=== PATIENT | female | born 1990 | race Asian ===

== ENCOUNTER 2019-09-01 09:05 | Inpatient (IN) | payer MEDICAID, SELFPAY ==
[2019-09-01] MEDS ORDERED: Promethazine HCl 25 MG/ML VIAL IM PRN ×3 (09:22→14:49)
[2019-09-01] MEDS ORDERED: Ondansetron PF 4 MG/2 ML Vial IVP PRN ×3 (09:22→14:49)
[2019-09-01] MEDS ORDERED: hydrALAZINE 20 MG/ML VIAL SLOW IVP PRN ×2 (09:22→14:49)
--- NOTE | 2019-09-01 09:26 | PDOC.LDHP ---
Labor and Delivery H&P HPI: 29 y/o at 40 and 1/7 weeks, with LGA fetus and suspected CPD, who has decided to have a , She declines a trial of labor. Current gestational age (weeks): 40 Due date: 08/31/19 Grav: 1 Para: 0 Current complications: other (CPD, LGA Fetus) Abnormal US findings: No Current medications: pre- vitamins Social history: none - Physical Exam Vital signs reviewed and normal: yes General: NAD Heart: RRR Lungs: CTAB Abdomen: gravid Extremeties: no edema FHT: category 1 - Assessment L&D Assessment: scheduled primary section - Plan Plan: admit to L&D, to OR for section
[2019-09-01] MEDS ORDERED: CEFAZOLIN 2 GM in Premix Bag 1 BAG IVPB SCH (09:30)
[2019-09-01] MEDS ORDERED: Bicitra 30 ML UDCUP PO SCH (09:30)
[2019-09-01] MEDS: Lactated Ringer's 1,000 ML IV SCH ×2 (09:56→10:52)
[2019-09-01 10:04] LABS: Hemoglobin 12.5 g/dL (12.0-16.0); Mean Corpuscular HGB CONC 31.6 g/dL (32.0-36.0); Mean Corpuscular Hemoglobin 30.8 pg (27.0-31.0); Mean Corpuscular Volume 97.4 fL (78.0-98.0); Mean Platelet Volume 8.6 fL (7.4-10.4); Platelet Count 230 thou/uL (130-400); RBC Distribution Width 13.5 % (11.5-14.5); Red Blood Cell (RBC) Count 4.06 mill/uL (4.20-5.40); White Blood Cell (WBC) Count 11.1 thou/uL (4.8-10.8)
[2019-09-01 10:25] VITALS: BMI 23.7
[2019-09-01 10:54] LABS: HBSAg Index 0.22 S/CO (0-0.99); Hep B Surf Ag Non-Reactive S/CO (NonReactive)
[2019-09-01] MEDS ORDERED: MORPHINE 5 MG/10 ML PF VIAL ONE (11:07)
[2019-09-01] MEDS ORDERED: ePHEDrine/0.9% NaCl/PF SYRINGE 50 mg/10 ml ONE (11:08)
[2019-09-01] MEDS ORDERED: Oxytocin 10 UNITS/ML VIAL ONE ×2 (11:08→12:09)
[2019-09-01] MEDS ORDERED: Ondansetron PF 4 MG/2 ML Vial ONE (11:08)
[2019-09-01] MEDS ORDERED: EPINEPHrine 1 MG/ML AMP ONE (11:08)
[2019-09-01 11:20] LABS: Syphilis Antibody Nonreactive (Nonreactive); Syphilis Antibody Index 0.02 S/CO (<1.00 Non-Reactive)
[2019-09-01] MEDS ORDERED: Meperidine HCl/PF 25 MG/ML VIAL SLOW IVP PRN (12:38)
[2019-09-01] MEDS ORDERED: Naloxone HCl 0.4 mg/ml Vial IVP PRN ×2 (12:38)
[2019-09-01] MEDS ORDERED: Naloxone HCl 0.4 mg/ml Vial IV PRN (12:38)
[2019-09-01] MEDS ORDERED: Promethazine HCl 25 MG SUPP PR PRN (12:38)
[2019-09-01] MEDS ORDERED: Ondansetron HCl/PF 4 MG/2 ML Vial IVP PRN (12:38)
[2019-09-01] MEDS ORDERED: Ketorolac Tromethamine 30 MG/ML VIAL IVP PRN (12:38)
[2019-09-01] MEDS ORDERED: L&D-Morphine 4 MG/ML VIAL SLOW IVP PRN (12:38)
[2019-09-01] MEDS ORDERED: diphenhydrAMINE 50 MG/ML VIAL IVP PRN (12:38)
[2019-09-01] MEDS ORDERED: Communication Order-Pharmacy FS SCH (12:45)
[2019-09-01] MEDS ORDERED: Ketorolac Tromethamine 30 MG/ML VIAL IVP SCH (12:45)
[2019-09-01] MEDS ORDERED: Bisacodyl 10 MG SUPP PR PRN (14:49)
[2019-09-01] MEDS ORDERED: NS / Oxytocin 40 units/1000ml 1,000 ML IV SCH (14:49)
[2019-09-01] MEDS ORDERED: Lanolin Ointment 7 GM TUBE TOP PRN (14:49)
[2019-09-01] MEDS ORDERED: Simethicone Chewable 80 MG TAB PO PRN (14:49)
[2019-09-01] MEDS ORDERED: Methylergonovine 0.2 MG/ML VIAL IM PRN (14:49)
[2019-09-01] MEDS ORDERED: diphenhydrAMINE 25 MG CAP PO PRN (14:49)
[2019-09-01] MEDS ORDERED: Misoprostol 200 MCG TAB PR PRN (14:49)
[2019-09-01] MEDS: Docusate Calcium (SURFAK) 240 MG CAP PO SCH (21:26)
[2019-09-01] MEDS: Ferrous Sulfate 325 MG TAB PO SCH (21:26)
[2019-09-02] MEDS ORDERED: HYDROcodone/Acetaminophen 5/325 mg Tablet PO PRN ×2 (00:45)
[2019-09-02] MEDS ORDERED: Zolpidem Tartrate 5 MG TAB PO PRN (00:45)
[2019-09-02 06:52] LABS: Hemoglobin 11.9 g/dL (12.0-16.0); Mean Corpuscular HGB CONC 33.4 g/dL (32.0-36.0); Mean Corpuscular Hemoglobin 32.7 pg (27.0-31.0); Mean Platelet Volume 8.2 fL (7.4-10.4); Platelet Count 181 thou/uL (130-400); RBC Distribution Width 13.2 % (11.5-14.5); Red Blood Cell (RBC) Count 3.64 mill/uL (4.20-5.40); White Blood Cell (WBC) Count 13.7 thou/uL (4.8-10.8)
[2019-09-02] MEDS: Ferrous Sulfate 325 MG TAB PO SCH ×2 (08:20→21:16)
[2019-09-02] MEDS ORDERED: Adacel (T-DAP) 0.5 ML SYRINGE IM ONE (09:00)
[2019-09-02] MEDS ORDERED: Varicella virus, LIVE 0.5 ML VIAL SC ONE (09:00)
[2019-09-02] MEDS ORDERED: FLU VACC QS2019-20(6MOS UP)/PF 60 MCG/0.5 ML SYRINGE IM ONE ×2 (09:00→17:36)
[2019-09-02] MEDS ORDERED: Measles/Mumps/Rubella 10 MCG/0.5 ML VIAL SC ONE (09:00)
[2019-09-02] MEDS: Prenatal Vitamin 1 TAB PO SCH (13:04)
[2019-09-02] MEDS: Docusate Calcium (SURFAK) 240 MG CAP PO SCH ×2 (13:04→21:30)
--- NOTE | 2019-09-02 19:33 | PDOC.PP ---
Post Progress Note Post Day #: 1 PO intake tolerated: yes Flatus: yes Ambulation: yes Vital Signs (12 hours) Temp Pulse Resp BP Pulse Ox 09/02/19 16:46 98.2 F 94 20 115/71 94 L 09/02/19 08:02 98.2 F 76 12 119/69 98 Weight Weight 138 lb 14.259 oz - Physical Examination General: NAD Cardiovascular: no m/r/g Respiratory: clear to auscultation bilaterally, non-labored breathing Abdominal: + bowel sounds, lochia, no distention Extremities: negative homans (B) Skin: CS incision dry & intact, no rash Neurological: no gross focal deficits Psychiatric: A&Ox3, normal affect Result Diagrams: 09/02/19 06:23 Additional Labs: Post Labs Blood Type O POSITIVE 09/01/19 10:28 Hep Bs Antigen Non-Reactive S/CO (NonReactive) 09/01/19 09:42
[2019-09-02] MEDS: Ibuprofen 800 MG TAB PO SCH (21:30)
--- NOTE | 2019-09-02 23:28 | OP ---
DATE OF PROCEDURE: 09/01/2019 TIME: At 1145 hours, central standard time. PREOPERATIVE DIAGNOSES: Intrauterine at 40 weeks and zero days with suspected cephalopelvic disproportion and possible qtdug-xdt-jekiklqeufc-age fetus. POSTOPERATIVE DIAGNOSES: Intrauterine at 40 weeks and zero days with suspected cephalopelvic disproportion and possible ikril-pme-yrtpnyzanne-age fetus. PROCEDURE PERFORMED: Primary low transverse section. FINDINGS: Viable female infant weighing 3698 g or 8 pounds 2 ounces. Apgars of 8 and 9. QUANTITATIVE BLOOD LOSS: 510 mL. COMPLICATIONS: None. DETAILS OF THE PROCEDURE: The patient was consented and taken back to the operating room where spinal anesthesia was found to be adequate. She was then prepped and draped in the normal sterile fashion. A timeout was performed by the entire operative team. The incision was then marked with a marking pen tested using sharp pickups. An incision was then made with a scalpel. The incision was carried through the adipose tissue down to the underlying rectus fascia using both sharp dissection as well as cautery. Once the fascia was identified, it was incised in the midline and then the fascial incision was carried through in both lateral directions using sharp as well as cautery dissection techniques. Next, the superior aspect of the rectus fascia was grasped with 2 Lucina clamps, which was tented up and the rectus muscles were dissected off using blunt dissection as well as cautery dissection. Similarly, the inferior aspect of the fascial incision was grasped with 2 Lucina clamps, tented up and the rectus muscles were dissected off bluntly as well as sharply. Next, the rectus muscles were in the midline and the peritoneum identified. The peritoneum was then carefully grasped with 2 hemostats and entered sharply. The peritoneal incision was extended superiorly and inferiorly and bladder blade was placed in the lower abdomen. At this point, the uterus was identified and the bladder flap was then developed using pickups with teeth as well as Metzenbaum scissors in both lateral directions. The bladder flap was then dissected downwards using the catalyst operator chief's finger as well as Metzenbaum scissors. The bladder blade was replaced. The lower uterine segment was then identified and entered sharply using a clean scalpel. The uterine incision was then dissected downwards until thin layer of muscle remained and this was entered bluntly using a hemostat to avoid any injury to the baby. The uterine incision was then stretched using two fingers in both lateral directions. An amniotomy was performed artificially using a hemostat and the baby was delivered using fundal pressure in a gentle fashion. Once out, the baby's mouth and nose were bulb suctioned, cord clamped and cut, and the baby was handed to waiting attendants. Next, the uterus was exteriorized, cleared of all clots and debris and the uterine incision was repaired with #1 Monocryl in a running locking fashion. A 2nd suture of the same type was used to obtain complete hemostasis at the uterine incision. The bladder flap was reapproximated using 3-0 Monocryl. Next, patient's left and right adnexa were inspected and appeared to be within normal limits. The posterior cul-de-sac was blotted dry and hemostasis assured. One more look at the uterine incision demonstrated hemostasis. Next, the uterus was replaced back within the abdomen. The peritoneum was reapproximated using 2-0 Monocryl without difficulty. The rectus muscles were then allowed to come back together and 0 chromic was used to aid in reapproximation of the muscle as necessary. The rectus fascia was then reapproximated in a running fashion using 0 Vicryl suture. The adipose tissue was then examined and appeared to be well approximated without any obvious separations. Finally, the skin was reapproximated with 3-0 Monocryl on a Raffaele needle without difficulty and Dermabond adhesive was applied to the skin. Once the glue was dry, the drapes were removed and the patient was transferred to an ambulatory bed where she was taken to recovery awake and in stable condition. Sponge, lap, and needle counts were correct x3. Job ID: [id number]
[2019-09-03] MEDS: Ibuprofen 800 MG TAB PO SCH ×3 (06:02→20:59)
[2019-09-03] MEDS: Ferrous Sulfate 325 MG TAB PO SCH (08:29)
[2019-09-03] MEDS: Prenatal Vitamin 1 TAB PO SCH (09:18)
[2019-09-03] MEDS: Docusate Calcium (SURFAK) 240 MG CAP PO SCH ×2 (09:18→20:59)
--- NOTE | 2019-09-03 23:32 | PDOC.PP ---
Post Progress Note Post Day #: 1 PO intake tolerated: yes Flatus: yes Ambulation: yes Vital Signs (12 hours) Temp Pulse Resp BP Pulse Ox 09/03/19 19:11 98.2 F 92 12 112/72 98 09/03/19 11:43 98.1 F 82 20 115/64 Weight Weight 138 lb 14.259 oz - Physical Examination General: NAD Cardiovascular: no m/r/g, RRR Respiratory: clear to auscultation bilaterally, non-labored breathing Abdominal: + bowel sounds, lochia, no distention Extremities: negative homans (B) Skin: CS incision dry & intact, no rash (DC in am) Neurological: no gross focal deficits Psychiatric: A&Ox3, normal affect Result Diagrams: 09/02/19 06:23 Additional Labs: Post Labs Blood Type O POSITIVE 09/01/19 10:28 Hep Bs Antigen Non-Reactive S/CO (NonReactive) 09/01/19 09:42
[2019-09-04] MEDS: Ferrous Sulfate 325 MG TAB PO SCH ×2 (04:30→08:36)
[2019-09-04] MEDS: Ibuprofen 800 MG TAB PO SCH ×2 (05:53→13:54)
[2019-09-04 08:02] VITALS: BP 115/57; TEMP 97.6
[2019-09-04] MEDS: Docusate Calcium (SURFAK) 240 MG CAP PO SCH (08:38)
[2019-09-04] MEDS: Prenatal Vitamin 1 TAB PO SCH (08:38)
== END 2019-09-04 15:00 | disposition home or self-care (01) | DRG 788 ==
LOC: L&D 09:05 → 3SE 15:24
PROVIDERS: ADMIT Obstetrics & Gynecology; ATTEND Obstetrics & Gynecology
PROC: 10D00Z1 Extraction of Products of Conception, Low, Open Approach (ICD-10-PCS; principal; 2019-09-01)
DX: O33.9 Maternal care for disproportion, unspecified (principal); O36.63X0 Maternal care for excessive fetal growth, third trimester, not applicable or unspecified; Z3A.40 40 weeks gestation of pregnancy; Z37.0 Single live birth
CPT/HCPCS: 36415; 51702; 85027; 86780; 86850; 86900; 86901; 87340; 88305; 90471; 90685; 90686; 90715; G0008; J0171; J0690; J2274; J2405; J2590

== ENCOUNTER 2019-09-14 01:53 | Emergency (ER) | payer MEDICAID, SELFPAY | END 2019-09-14 02:50 | disposition home or self-care (01) | LOC: ERS 01:53 | DX: O90.89 Other complications of the puerperium, not elsewhere classified (principal); T81.89XA Other complications of procedures, not elsewhere classified, initial encounter | CPT/HCPCS: 99282 ==